=== PATIENT | female | born 1995 | race Two or more races ===

== ENCOUNTER 2023-03-06 18:15 | Emergency (ER) | payer OTHER ==
[~2023-03-06] VITALS: Ht 152.4 cm; Wt 84.4 kg
[2023-03-06] MEDS ORDERED: PRENATAL + DHA1 EAC1 (18:32)
== END 2023-03-06 20:37 | disposition home or self-care (01) ==
LOC: ER 18:15
DX: J06.9 Acute upper respiratory infection, unspecified (principal); R53.81 Other malaise; Z3A.01 Less than 8 weeks gestation of pregnancy; Z20.822 Contact with and (suspected) exposure to COVID-19